=== PATIENT | male | born 1990 | race Hispanic/Latino ===

== ENCOUNTER → 2016-12-25 | Day surgery (SDC) | payer OTHER ==
[~2016-12-25] VITALS: Ht 172.7 cm; Wt 81.4 kg
[~2016-12-25] MED LIST: Atropine 0.4 mg/mL Inj IVPUSH PRN; CeFAZolin 2 Gm/50 mL D5W Duplex Bag IV ONE; CeFAZolin Inj 2 GM in IV Premix 1 EACH IV SCH; Dexamethasone 4 mg/mL Inj IVPUSH PRN; EPHEDrine Sulfate 50 mg/mL Inj IVPUSH PRN; HYDR-3090 PO; HYDROmorphone 1 mg/mL Inj IVPUSH PRN; HYDROmorphone 1 mg/mL Inj ONE; IBUP200C PO; Ketamine 10 mg/mL 20 mL Inj ONE; Labetalol 5 mg/mL 4 mL Inj IV PRN; Lactated Ringer's 1,000 ML IV ONE; Lactated Ringer's 1,000 ML IV SCH; Lactated Ringer's 500 ML IV PRN; Lidocaine 1%-Epi 1:100,000 20 mL Inj INFILTRATE ONE; MetoCLOpramide 5 mg/mL 2 mL Inj IVPUSH PRN; Ondansetron 2 mg/mL 2 mL Inj IVPUSH PRN; Ondansetron 2 mg/mL 2 mL Inj ONE; Phenylephrine 10,000 mCg/mL Inj IVPUSH PRN; Propofol 10,000 mCg/mL 20 mL Inj ONE; Rocuronium 10 mg/mL 5 mL Inj ONE; fentaNYL-PF 50 mCg/mL 2 mL Inj IVPUSH PRN; fentaNYL-PF 50 mCg/mL 2 mL Inj ONE
[2016-12-25 11:12] VITALS: BP 122/71; PULSE 65; RESP 18; O2SAT 98
[2016-12-25] MEDS: Lactated Ringer's 1,000 ML IV SCH ×2 (11:33→13:00)
--- NOTE | 2016-12-25 12:47 | PCM.HPANE ---
Patient Data Date of Service: Dec 25, 2016 Surgeon Admitting Provider: Attending Provider:Davis Smith DO Primary Care Physician:Arielle Prado MD Other Provider:Nicholas Parsons Anesthesia Reason for Visit Right 4TH Metacarpal Fracture Ht/WT & BMI Height (Feet): 5 Height (Inches): 8.00 Weight (Kilograms): 81.400 Body Mass Index 27.00 Allergies Coded Allergies: No Known Allergies (Unverified Allergy, Unknown, 12/24/16) Past Anesthesia History Anesthesia History: Denies:: Abnormal Airway, Anesthesia Reactions, Difficult Intubation, Fam Anesthesia Reaction, Fam Malignant Hypertherm, Malignant Hyperthermia Diabetes History Hx Diabetes?: No Medications Home Meds Incl Beta [place]: No Reported Medications Hydrocodone-Acetaminophen 5-300 mg 1 Each Tablet1 Tablet PO Q4H PRN For Pain Ref 0 12/24/16 Ibuprofen 200 Mg [id number] Mg PO QID PRN For Pain Ref 0 12/24/16 History History of ENT Problems?: No HEENT History: Denies:: Abnormal Airway Cataracts Difficult Intubation Dysphagia Glaucoma Hearing Problem Sinus Problem TMJ Denture Type: None Teeth Condition: Within Normal Limits Hx of Heart Problems?: No Cardiovascular History: Denies:: AICD Abdominal Aortic Aneurism Atrial Fibrillation Cardiac Surgery Chest Pain Congestive Heart Failure Coronary Artery Disease Edema Heart Murmur Hypertension Irregular Heartbeat Pacemaker Peripheral Vascular Rheumatic Fever Thrombophlebitis Valvular Heart Disease Hx of Respiratory Problem?: No Respiratory History: Denies:: Asthma COPD Chest Surgery Cough Dyspnea Emphysema Hemoptysis Oxygen Administration Pneumonia Pulmonary Embolism Tuberculosis Use of C-PAP Machine Use of Inhalers / NEBS Hx Neurologic Problems?: No Hx of GI Problems?: No Hx of Problems?: No Hx Musculoskeletal Problems?: Yes (Metacarpal Fx) Musculoskeletal History: Positive for:: Musculoskeletal Trauma (4th metacarpal fx 11/25/16) Hx Surgeries?: No Hx Any Other Health Problems?: No Hx Diabetes: No Stop/Bang S-Snoring: Do You Snore Loudly: Yes T-Tired: feel tired, fatigued: No O-Obsered: Observed not breath: No P-Blood Pressure: treated: No B- Body Mass Index > 35 kg/m2: No A- Age over 50: No N- Neck Large Circumference: No G- Gender Male: Yes DELROY Total Score: 2 DELROY Risk Assessment: Low Risk, <3 Yes Risk Assessment Category Category 1A: Patient has history of documented sleep apnea, and HAS NOT received any narcotic, sedative or anesthesia administration during this stay. Category 1B: Patient has history of documented sleep apnea, and HAS received any narcotic , sedative or anesthesia administration during this stay Category 2: Patient has SUSPECTED Obstructive Sleep Apnea, and HAS received any narcotic , sedative or anesthesia administration during this stay. Category 3: Patient has SUSPECTED Obstructive Sleep Apnea and HAS NOT received narcotic, sedative or anesthesia administration during this stay. Category 4: Outpatient in Procedural Areas with known sleep apnea or who screen positive for High Risk via the STOP/BANG questionnaire. Exam Exam Vital Signs Vital Signs Date Time Temp Pulse Resp B/P Pulse Ox O2 Delivery O2 Flow Rate FiO2 12/25/16 11:12 37.2 65 18 122/71 98 Room Air General Appearance: Alert, Oriented X3, Cooperative, No Acute Distress HEENT/AIRWAY: MP 2 Lungs: Clear to Auscultation, Normal Air Movement Heart: Exam Unremarkable, Regular Rate/Rhythm, No Murmurs/Rubs/Gallops Meds/Labs/Diagnostics Admission Meds Current Medications Lactated Ringer's (Lr) 1,000 ml @ 80 mls/hr [id number] IV Last administered on t 11:33; Start 12/25/16 at 06:00 Plan Impression Patient chart reviewed, patient interviewed and anesthestic plan with risks, benefits, and alternatives discussed, and informed consent obtained. NPO per Anesth. Guidelines: Yes ASA Physical Status: ASA1 Normal Healthy Anesthetic Support Modalities: Hemodynamic Monitoring Anesthetic Plan: GA Bene/Risks/Altern/Consents: Yes HP Complete Prior to Induction: Yes Kvng Hammond DO Dec 25, 2016 12:47
[2016-12-25 14:45] VITALS: BP 124/69; PULSE 88; RESP 14; O2SAT 100
[2016-12-25 14:50] VITALS: BP 120/52; PULSE 108; RESP 16; O2SAT 100
[2016-12-25 15:10] VITALS: BP 124/65; PULSE 88; RESP 18; O2SAT 92
[2016-12-25 15:25] VITALS: BP 125/61; PULSE 86; RESP 18; O2SAT 93
[2016-12-25] MEDS: HYDROcodone-APAP 5-325 mg Tablet PO PRN ×2 (15:30→15:45)
--- NOTE | 2016-12-25 15:35 | PCM.ANEP1 ---
Post Anesthesia PACU Phase 1 Assessment Date of Service: Dec 25, 2016 Vital Signs Vital Signs Date Time Temp Pulse Resp B/P Pulse Ox O2 Delivery O2 Flow Rate FiO2 12/25/16 15:10 88 18 124/65 92 Room Air 12/25/16 14:50 108 16 120/52 100 Nasal Cannula 12/25/16 14:45 36.6 88 14 124/69 100 Nasal Cannula 12/25/16 11:12 37.2 65 18 122/71 98 Room Air Anesthetic Administered: GA Level of Alertness: Sleepy, easy to arouse ROMERO's with Equal Strength: Yes Pain: Yes Pain Scale Score: 4 Nausea or Vomiting: No CV Function & Hydration Stable: Yes Airway Device: Lungs: Clear to Auscultation, Normal Air Movement Dermatome Level: Full Sensation PACU Phase 2 Assessment Complications: No Patient Instructions Provided: N/A Kvng Hammond DO Dec 25, 2016 15:34
[2016-12-25 16:30] VITALS: BP 124/63; PULSE 84; RESP 16; O2SAT 98
--- NOTE | 2016-12-25 18:47 | OP ---
[address] [address] OPERATIVE REPORT PATIENT: ABHISHEK EPRDUE : 1990 MR#: [id number] ADMIT: 12/25/2016 JOB ID: [id number] DATE OF SURGERY: 12/25/2016 PREOPERATIVE DIAGNOSIS(ES): 1. Right fourth metacarpal shaft fracture. 2. Left hand pain. POSTOPERATIVE DIAGNOSIS(ES): 1. Right fourth metacarpal shaft fracture. 2. Left hand pain. PROCEDURE: 1. Open reduction, internal fixation of right subacute 4th metacarpal shaft fracture. 2. Physician-guided fluoroscopy of the left hand. SURGEON: Davis Smith D.O. ANESTHESIA: General. HISTORY: The patient is a 26-year-old male that originally sustained a 4th metacarpal shaft fracture. Was treated conservatively. He was seen by Dr. Alexis Hua and eventually lost his reduction and thus was referred to me for further evaluation and treatment. He presented with significant volar angulation and dorsal translation of the 4th metacarpal shaft fracture. He was currently being incarcerated. Discussed with the patient the option for risks, benefits, alternatives, indications for an open reduction, fixation of the right fourth metacarpal shaft fracture. He understood the risks include, but are not limited to neurovascular injury, tendon injury, infection, failure of fixation, stiffness, persistent pain, all of which may require further intervention. The patient had all questions answered. Consent was signed and placed in the chart. In the preoperative suite, the patient was noted to have left hand erythema and swelling from punching a wall yesterday evening, I thus discussed with him also obtaining x-rays while in the OR to evaluate if any underlying fractures or dislocations were appreciated. PROCEDURE IN DETAIL: The patient was brought to the operative suite and placed supine on the operating table. Surgical time-out was performed. Everyone was in agreement. After appropriate anesthesia was obtained, a right upper arm tourniquet was applied and the right upper extremity was prepped and draped in sterile fashion. Right extremity was then exsanguinated and the tourniquet inflated to 250 mmHg. The patient's 4th metacarpal shaft was approached with a longitudinal incision between the 4th and 5th metacarpals. Dissection was carried down to the extensor tendons which were retracted out of the operative field. The fracture site was identified and a longitudinal incision performed and the periosteum elevated off of the fracture. Manual reduction was performed after debridement of the fracture site from significant fibrous tissue with an anatomic reduction achievable and verified under fluoroscopy. A Synthes 2.0 mm, seven-hole straight plate was placed along the dorsal ulnar aspect of the 4th metacarpal. It was then fixed with nonlocking screws, both proximal and distal to the fracture site. The position of the plate and the length of the screws were verified under fluoroscopy, as well as the reduction. With passive wrist extension, the patient's fingers demonstrated no evidence of malrotation. Completion of fixation was performed utilizing a combination of locking and nonlocking screws, both proximal and distal to the fracture site, for a total of four nonlocking screws and two locking screws. Copious irrigation was performed followed by closure of the periosteum overlying the plate with 4-0 Vicryl in a [id number] fashion. 4-0 nylon was used to then close the skin and the patient placed in a well-padded, well-molded ulnar gutter splint. The patient's left hand was then visualized with multiple radiographs on AP, lateral, and oblique projections of the hand as well as the wrist, and no fractures or dislocations were appreciated. The patient had anesthesia then reversed and was transferred to PACU for recovery. ESTIMATED BLOOD LOSS: Less than 1 cc. COMPLICATIONS: None. DISPOSITION: The patient tolerated the procedure well. Anesthesia was reversed and the patient was transferred to the PACU for recovery. POSTOPERATIVE PLAN: The patient will follow up with Occupational Therapy within the next 1-2 weeks to have a hand based ulnar gutter brace fashioned and start initiating range of motion of the hand in two weeks. Sutures will be removed. It will be four total weeks from surgery before discontinuing any mobilization. He is to be working on range of motion throughout this entire time once the brace is placed. IMPLANTS: One Synthes 2.0 mm straight plate with a total of four nonlocking and two locking screws.
== END | disposition home or self-care (01) ==
LOC: SAS 10:53
PROVIDERS: ATTEND Orthopaedic Surgery
PROC: 0PSP04Z Reposition Right Metacarpal with Internal Fixation Device, Open Approach (ICD-10-PCS; principal; 2016-12-25 12:45)
DX: S62.324A Displaced fracture of shaft of fourth metacarpal bone, right hand, initial encounter for closed fracture (principal); W22.8XXA Striking against or struck by other objects, initial encounter
CPT/HCPCS: 26615; 76000; C1713; J0690; J1170; J2250; J2405; J3010; J7120